=== PATIENT | male | born 1955 | race Caucasian/White ===

== ENCOUNTER 2018-11-15 14:34 | Inpatient (IN) | payer OTHER ==
[2018-11-15 15:37] LABS: Activated Partial Thrombo Time 29.4 seconds (26.0-38.0); INR 1.56 (0.82-1.09)
[2018-11-15 15:42] LABS: ALT 13 U/L (7-52); AST 18 U/L (13-39); Albumin 3.9 g/dL (3.2-5.2); Albumin/Globulin Ratio 1.6 (1-3); Alkaline Phosphatase 45 U/L (34-104); Anion Gap 12 mmol/L (2-11); BUN/Creatinine Ratio 21.8 (8-20); Blood Urea Nitrogen 22 mg/dL (6-24); CO2 Carbon Dioxide 19 mmol/L (22-32); Chloride 105 mmol/L (101-111); EGFR African American 90.3 (>60); EGFR Non-African American 74.6 (>60); Globulin 2.5 g/dL (2-4); Glucose 180 mg/dL (70-100); Potassium 4.2 mmol/L (3.5-5.0); Sodium 136 mmol/L (135-145); Total Protein 6.4 g/dL (6.4-8.9)
[2018-11-15 15:49] LABS: ABS Eosinophils 0.1 10^3/ul (0-0.6); ABS Lymphocytes 1.9 10^3/ul (1.0-4.8); ABS Monocytes 0.7 10^3/ul (0-0.8); ABS Neutrophils 6.1 10^3/ul (1.5-7.7); Eosinophil % 1.2 %; Hematocrit 17 % (42-52); Hemoglobin 5.6 g/dL (14.0-18.0); Lymphocyte % 21.5 %; Mean Corpuscular HGB Conc 34 g/dL (31-36); Mean Corpuscular Hemoglobin 29 pg (27-31); Mean Corpuscular Volume 85 fL (80-94); Mean Platelet Volume 8.3 fL (7.4-10.4); Nucleated Red Blood Cells % 0.3; Platelet Count 197 10^3/uL (150-450); Red Blood Count 1.93 10^6 /uL (4.18-5.48); Red Cell Distribution Width 16 % (10-15); White Blood Count 8.8 10^3/uL (3.5-10.8)
[2018-11-15 15:50] LABS: Polychromasia 3+
[2018-11-15 15:56] LABS: Troponin I 0.04 ng/mL (<0.04)
--- NOTE | 2018-11-15 15:59 | ED ---
Complex/Multi-Sys Presentation - HPI Summary HPI Summary: A 63 y/o M presents to ED c/o SOB onset for three days. Patient had open heart surgery 6 weeks ago at [facility] in [place], things were well. He was taking Warfarin for some mild a-fib. A week and a half ago, patient accidentally double dosed on his Coumadin for about three days ago. Pt went to the Coumadin clinic yesterday, and they had him stop his Coumadin. Associated sx: lightheadedness, dizziness, muscular chest "burning", constipation, tarry stools. Pt denies any fever, chills, erythema of eyes, sore throat, CP, cough, abdominal pain, N/V, dysuria, hematuria, myalgia, edema, and rash. Alleviating factors: sitting, rest. Patient denies prior blood transfusions. - History Of Current Complaint [facility] Time Seen by Provider: 11/15/18 15:42 Hx Obtained From: Patient, Family/Feed Weigher - girlfriend, Medical Records Onset/Duration: Gradual Onset, Lasting Days, Still Present Severity Currently: Mild Aggravating Factor(s): exertion Alleviating Factor(s): rest, sitting Associated Signs And Symptoms: Positive: Dizziness, SOB, Melena - tarry stools, Other - pos: lightheadedness, muscular chest "burning", constipation. neg: chills, erythema of eyes, sore throat, dysuria, hematuria, myalgia, edema, and rash.. Negative: Cough, Chest Pain, Edema, Nausea, Vomiting, Abdominal Pain, Fever - Allergies/Home Medications Allergies/Adverse Reactions: Allergies Allergy/AdvReac Type Severity Reaction Status Date / Time No Known Allergies Allergy Verified 11/15/18 14:37 Home Medications: Home Medications Aspirin 81 mg CHEW TAB* [Aspirin Low Dose TAB*] 81 mg PO DAILY 11/15/18 [ History Confirmed 11/15/18] FLUoxetine CAP* [PROzac CAP*] 20 mg PO DAILY 11/15/18 [History Confirmed ] Metoprolol Tartrate TAB* [Lopressor TAB*] 25 mg PO DAILY 11/15/18 [History Confirmed 11/15/18] Omeprazole CAP (NF) [Prilosec CAP* 20 MG] 20 mg PO DAILY 11/15/18 [History Confirmed 11/15/18] RX: Metformin ER (NF) 1,000 mg PO BID 11/15/18 [History Confirmed 11/15/18] Warfarin TAB(*) [Coumadin TAB(*)] 5 - 10 mg PO DAILY 11/15/18 [History Confirmed 11/15/18] PMH/Surg Hx/FS Hx/Imm Hx Previously Healthy: No - gout Endocrine/Hematology History: Reports: Hx Diabetes - pre-DM Cardiovascular History: Reports: Hx Atrial Fibrillation - mild, Hx Hypertension , Other Cardiovascular Problems/Disorders - valve replacement - Cancer History Cancer Type, Location and Year: colon CA Infectious Disease History: No Infectious Disease History: Denies: Traveled Outside the [place] in Last 30 Days - Family History Known Family History: Positive: Other - pos: asthma Negative: Diabetes - Social History Occupation: Unemployed Lives: Alone Alcohol Use: Occasionally Hx Substance Use: No Substance Use Type: Reports: None Hx Tobacco Use: Yes Smoking Status (MU): Former Smoker Review of Systems Negative: Fever, Chills Negative: Erythema Negative: Sore Throat Positive: Other - pos: muscular chest "burning". Negative: Chest Pain Positive: Shortness Of Breath. Negative: Cough Positive: Other - pos: tarry stools, constipation. Negative: Abdominal Pain, Vomiting, Nausea Negative: dysuria, hematuria Negative: Myalgia, Edema Negative: Rash Neurological: Other - pos: dizziness, lightheadedness All Other Systems Reviewed And Are Negative: Yes Physical Exam - Summary Physical Exam Summary: Constitutional: Well-developed, Well-nourished, Alert. (-) Distressed Skin: Warm, Dry, Pale HENT: Normocephalic; Atraumatic Eyes: Conjunctiva normal Neck: Musculoskeletal ROM normal neck. (-) JVD, (-) Stridor, (-) Tracheal deviation Cardio: Rhythm regular, rate normal, Heart sounds normal; Intact distal pulses; The pedal pulses are 2+ and symmetric. Radial pulses are 2+ and symmetric. (-) Murmur Pulmonary/Chest wall: Effort normal. (-) Respiratory distress, (-) Wheezes, (-) Rales Abd: Soft, (-) epigastric tenderness, (-) Distension, (-) Guarding, (-) Rebound Musculoskeletal: (-) Edema Lymph: (-) Cervical adenopathy Neuro: Alert, Oriented x3 Psych: Mood and affect Normal Rectal: melena Triage Information Reviewed: Yes Vital Signs On Initial Exam: Initial Vitals Temp Pulse Resp BP Pulse Ox 97.8 F 90 18 135/72 100 11/15/18 14:37 11/15/18 14:37 11/15/18 14:37 11/15/18 14:37 11/15/18 14:37 Vital Signs Reviewed: Yes Diagnostics - Vital Signs Vital Signs Temp Pulse Resp BP Pulse Ox 11/15/18 14:37 97.8 F 90 18 135/72 100 - Laboratory Lab Results: Lab Results 11/15/18 11/15/18 11/15/18 Range/Units 15:05 15:11 15:11 WBC 8.8 (3.5-10.8) 10^3/uL RBC 1.93 L (4.18-5.48) 10^6 /uL Hgb 5.6 L* (14.0-18.0) g/dL Hct 17 L (42-52) % MCV 85 (80-94) fL MCH 29 (27-31) pg MCHC 34 (31-36) g/dL RDW 16 H (10-15) % Plt Count 197 (150-450) 10^3/uL MPV 8.3 (7.4-10.4) fL Neut % (Auto) 69.1 % Lymph % (Auto) 21.5 % [place] % (Auto) 7.8 % Eos % (Auto) 1.2 % Baso % (Auto) 0.4 % Absolute Neuts (auto) 6.1 (1.5-7.7) 10^3/ul Absolute Lymphs (auto) 1.9 (1.0-4.8) 10^3/ul Absolute Monos (auto) 0.7 (0-0.8) 10^3/ul Absolute Eos (auto) 0.1 (0-0.6) 10^3/ul Absolute Basos (auto) 0.0 (0-0.2) 10^3/ul Absolute Nucleated RBC 0.0 10^3/ul Nucleated RBC % 0.3 Polychromasia 3+ Anisocytosis 1+ INR (Anticoag Therapy) (0.82-1.09) APTT (26.0-38.0) seconds Sodium 136 (135-145) mmol/L Potassium 4.2 (3.5-5.0) mmol/L Chloride 105 (101-111) mmol/L Carbon Dioxide 19 L (22-32) mmol/L Anion Gap 12 H (2-11) mmol/L BUN 22 (6-24) mg/dL Creatinine 1.01 (0.67-1.17) mg/dL Est GFR ( Amer) 90.3 (>60) Est GFR (Non-Af Amer) 74.6 (>60) BUN/Creatinine Ratio 21.8 H (8-20) Glucose 180 H (70-100) mg/dL Calcium 9.0 (8.6-10.3) mg/dL Total Bilirubin 0.50 (0.2-1.0) mg/dL AST 18 (13-39) U/L ALT 13 (7-52) U/L Alkaline Phosphatase 45 (34-104) U/L Troponin I 0.04 H* (<0.04) ng/mL B-Natriuretic Peptide (<=100) pg/mL Total Protein 6.4 (6.4-8.9) g/dL Albumin 3.9 (3.2-5.2) g/dL Globulin 2.5 (2-4) g/dL Albumin/Globulin Ratio 1.6 (1-3) Blood Type O Positive Antibody Screen Pending 11/15/18 11/15/18 Range/Units 15:11 15:11 WBC (3.5-10.8) 10^3/uL RBC (4.18-5.48) 10^6 /uL Hgb (14.0-18.0) g/dL Hct (42-52) % MCV (80-94) fL MCH (27-31) pg MCHC (31-36) g/dL RDW (10-15) % Plt Count (150-450) 10^3/uL MPV (7.4-10.4) fL Neut % (Auto) % Lymph % (Auto) % [place] % (Auto) % Eos % (Auto) % Baso % (Auto) % Absolute Neuts (auto) (1.5-7.7) 10^3/ul Absolute Lymphs (auto) (1.0-4.8) 10^3/ul Absolute Monos (auto) (0-0.8) 10^3/ul Absolute Eos (auto) (0-0.6) 10^3/ul Absolute Basos (auto) (0-0.2) 10^3/ul Absolute Nucleated RBC 10^3/ul Nucleated RBC % Polychromasia Anisocytosis INR (Anticoag Therapy) 1.56 H (0.82-1.09) APTT 29.4 (26.0-38.0) seconds Sodium (135-145) mmol/L Potassium (3.5-5.0) mmol/L Chloride (101-111) mmol/L Carbon Dioxide (22-32) mmol/L Anion Gap (2-11) mmol/L BUN (6-24) mg/dL Creatinine (0.67-1.17) mg/dL Est GFR ( Amer) (>60) Est GFR (Non-Af Amer) (>60) BUN/Creatinine Ratio (8-20) Glucose (70-100) mg/dL Calcium (8.6-10.3) mg/dL Total Bilirubin (0.2-1.0) mg/dL AST (13-39) U/L ALT (7-52) U/L Alkaline Phosphatase (34-104) U/L Troponin I (<0.04) ng/mL B-Natriuretic Peptide 218 H (<=100) pg/mL Total Protein (6.4-8.9) g/dL Albumin (3.2-5.2) g/dL Globulin (2-4) g/dL Albumin/Globulin Ratio (1-3) Blood Type Antibody Screen Result Diagrams: 11/15/18 15:11 11/15/18 15:11 Lab Statement: Any lab studies that have been ordered have been reviewed, and results considered in the medical decision making process. - Radiology CXR Radiology Interpretation Completed By: Radiologist Summary of Radiographic Findings: IMPRESSION: NO ACTIVE CARDIOPULMONARY DISEASE. ED provider has reviewed this report. - EKG 1453 Cardiac Rate: NL - 84 bpm EKG Rhythm: Sinus Rhythm Summary of EKG Findings: no STEMI. Complex Multi-Symp Course/Dx Course Of Treatment: Patient is a 63 y/o M who had open heart surgery 6-weeks ago at [facility] who presents after accidental overdose of Coumadin 1.5 weeks ago. Associated sx: SOB, lightheadedness, dizziness, muscular chest "burning", constipation, tarry stools. PE finds melena on rectal exam, and pallor. CXR is negative. EKG is NSR. Critical lab values: Hgb: 5.6, lactic acid: 3.3, troponin : 0.04. Consulted with Dr. Obrien, GI, who will scope patient. Consulted with Dr. Julien, hospitalist, who will admit patient. - Diagnoses Provider Diagnoses: Accidental medication overdose, Upper GI bleed, Symptomatic anemia - Physician Notifications Discussed Care Of Patient With: David Obrien - GI Time Discussed With Above Provider: 16:55 Instructed by Provider To: Other - Will scope patient. - Critical Care Time Critical Care Time: 30-74 min - 45 mins Discharge - Sign-Out/Discharge Documenting (check all that apply): Patient Departure - ADMIT Patient Received Moderate/Deep Sedation with Procedure: No - Discharge Plan Disposition: ADMITTED TO [facility] Referrals: Annmarie Ashby MD [Primary Care Provider] - - Attestation Statements Document Initiated by Scribe: Yes Documenting Scribe: Sofia Foy Provider For Whom Scribe is Documenting (Include Credential): Dr. Paulino Shah MD Scribe Attestation: Bethany, Sofia Foy, scribed for Dr. Paulino Shah MD on 11/15/18 at 1725. Status of Scribe Document: Ready Consult Consult: 1655: Consult with Dr. Julien, hospitalist Will admit patient.
[2018-11-15] MEDS ORDERED: Pantoprazole IV* 40 MG IV ONE (16:51)
[2018-11-15] MEDS ORDERED: Pantoprazole* 80 mg IN NS 80 MG/250 ML BAG IV ONE (16:51)
[2018-11-15] MEDS ORDERED: Dextrose 50% Syringe 50 ML* 25 GM/50 ML SYRINGE IV PUSH PRN (17:43)
[2018-11-15 18:09] LABS: Hematocrit 15 % (42-52); Hemoglobin 5.1 g/dL (14.0-18.0)
[2018-11-15] MEDS: NS 0.9% 1000 ML** 1,000 ML IV SCH (18:09)
--- NOTE | 2018-11-15 19:23 | HP ---
HISTORY AND PHYSICAL: DATE OF ADMISSION: 11/15/18 PROVIDER: Nancy Reina NP ATTENDING PHYSICIAN: Dr. Garduno * (report dictated by Nancy Reina NP). PRIMARY CARE PROVIDER: Dr. Annmarie Ashby. DIGESTER HAND: Dr. Santiago. CARDIOTHORACIC SURGEON: Dr. Navdeep Rivas. CHIEF COMPLAINT: Dizziness, shortness of breath, melena. HISTORY OF PRESENT ILLNESS: Mr. Mejia is a 63-year-old male with a past medical history of cardiovascular disease with recent open heart surgery 6 weeks ago at [facility] in [place] and which he reports he had a two vessel bypass with a aortic bovine valve replacement, also has a history of non-insulin- dependent type 2 diabetes, hypertension, and history of colon cancer status post resection 15 years ago. The patient reports that he was started on metformin for a new diagnosis of type 2 diabetes at his recent [facility] hospitalization. As well, there was a question if he had AFib and he was started on Coumadin. The patient reports a week and a half to two weeks ago took a double dose of Coumadin for 3-5 days, misunderstanding the directions as his partner was managing his medications and she went out of town. He reports he has been following with the [facility] and last week was found to have an INR of 8 and at that time the Coumadin Clinic just stopped his Coumadin and he was told to increase his leafy green intake and denies being given any vitamin K. He reports his INR drifted down and followed up with the clinic this week, where it was noted to be 1.7 and he was started on Coumadin 2.5 last evening. He reports over the course of the week and a half to two weeks, he had increased bleeding gums. Starting approximately 3 to 4 days ago, he started noting he had small black tarry stools that were sticky-like. He reports these were approximately once a day. His last black tarry stool was this morning and he reports it to be very small. He has had no abdominal pain, nausea, vomiting. He reports that today he became very short of breath with exertion with some dizziness, bringing himself to the ER and was found to have a hemoglobin of 5.6 and an INR of 1.56. In regards to his recent surgery, he reports he has been doing very well. His chest incision has been healing nicely. I do note there is a nursing note that says that the patient complained of some chest pain; however, the patient denies chest pain and states that he has left upper wall muscular chest pain and on assessment, this is tender to touch. Currently, the patient is doing well in the emergency department with stable vital signs. He has a troponin of 0.04 and a noted lactic acid of 3.3. The patient has no noted signs of sepsis or infection. He denies any recent illnesses, no fever/chills, cough, body aches. PAST MEDICAL HISTORY: 1. Syj-hxexosb-iszknerwc type 2 diabetes. 2. Coronary artery disease with history of recent bypass 6 weeks ago with bovine aortic valve repair 3. Possible atrial fibrillation, recently started on Coumadin 6 weeks ago 4. Depression. 5. GERD. 6. History of colon cancer, status post resection 15 years ago. HOME MEDICATIONS: 1. Coumadin 2.5 mg p.o. in the evening. 2. Aspirin 81 mg p.o. daily. 3. Prilosec 20 mg p.o. daily. 4. Prozac 20 mg p.o. daily. 5. Metformin ER 1000 mg p.o. b.i.d. 6. Metoprolol tartrate 25 mg p.o. daily. ALLERGIES: No known allergies. FAMILY HISTORY: His father of an MD at age 44. No family history of diabetes or cancer. SOCIAL HISTORY: Ten-year smoking history, smoking 1 pack a day, quit 35 years ago. Occasional alcohol. Denies drug use. 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 He is 7 years ago and currently lives with his partner, Faye, who he lists as a healthcare proxy. He has 1 son, Osiel Jones, who lives in [place] and he also lists as a healthcare proxy. REVIEW OF SYSTEMS: A 14-point review of systems was performed. All the positives and negatives are mentioned in the history of present illness. Otherwise are negative. PHYSICAL EXAMINATION GENERAL APPEARANCE: A 63-year-old male, alert and oriented x3, appears well, stable, in no acute distress. VITAL SIGNS: Temperature 97.8, heart rate 91, respirations 23, O2 sat 100% on room air, blood pressure 147/94. HEENT: Head is normocephalic, atraumatic. Pupils are equal and reactive to light. Oropharynx is clear. Moist mucous membranes. Good dentition. NECK: Supple. RESPIRATORY: Lungs are clear to auscultation bilaterally. Good aeration throughout. CARDIAC: S1, S2. Regular rate and rhythm. No murmurs, rubs, or gallops appreciated. No lower extremity edema noted. 2+ DP pulses bilaterally. ABDOMEN: Slightly obese, soft, nontender, nondistended. Normal bowel sounds throughout. MUSCULOSKELETAL: No clubbing or cyanosis. Full range of motion in all extremities. Strength is 5/5 throughout. NEURO: Alert and oriented x3. No focal deficits noted. Moves all extremities. Sensation to lower extremities is intact to light touch. PSYCH: Appropriate to situation. SKIN: No rashes, lesions, or open wounds noted. DIAGNOSTIC STUDIES/LAB DATA: Sodium 136, potassium 4.2, chloride 105, carbon dioxide 19, anion gap 12, BUN 12, creatinine 1.01, glucose 180, lactic acid 3.3 , calcium 9.0. AST 18, ALT 13, alkaline phosphatase 45. Troponin 0.04. BNP 218. Total protein 6.4, albumin 3.9. WBC is 8.8, RBC 1.93, HGB 5.6, HCT 17, platelet count 197. INR 1.56. Chest x-ray, impression: No active cardiopulmonary disease noted. EKG: Sinus rhythm with a rate of 84, possible ST depression in V3 through V6. ASSESSMENT AND PLAN: Mr. Mejia is a 63-year-old male with past medical history of lkq-lparjli-wvtwlmiyl type 2 diabetes; hypertension; history of colon cancer, status post resection; coronary artery disease, status post recent two vessel bypass with aortic valve replacement; possible atrial fibrillation, who accidentally took an increased dose of his Coumadin for possibly 3 to 5 days, who then developed black tarry stools, shortness of breath and dizziness, presented to the emergency department, found to have a hemoglobin of 5.6. The patient will be admitted to the hospitalist service for gastrointestinal bleed. 1. Gastrointestinal bleed. The patient will be admitted to telemetry. He is stable. Two IVs have been placed. He has been started on a Protonix drip. He is currently undergoing 2 units of packed red blood cells. He looks well. He is hemodynamically stable. Trend H and Hs q.6 hours. I spoke with GI, Dr. Obrien, who recommends the patient be n.p.o. after midnight with plan for colonoscopy with Dr. Hyde tomorrow. 2. Elevated troponin. The patient has no chest pain. He does have some slight depressions in V3 through V6. I have low suspicion for an acute coronary event. We will monitor on telemetry and trend troponins. I will try to obtain his records from [facility]. 3. Coronary artery disease. Continue metoprolol with hold parameters. Plan to hold Coumadin and aspirin. Again, we will try to obtain records and reach out to his residential child care counselor. 4. Atrial fibrillation. Currently in sinus rhythm. Continue metoprolol with hold parameters. Again, plan to hold aspirin and Coumadin. 5. Elevated lactic acid. We will repeat this. I have low suspicion for any infectious etiology. 6. Fro-suxdgks-qtudgalmk type 2 diabetes. Hold metformin. Fingerstick blood glucose a.c. and h.s. with lispro sliding scale. 7. Gastroesophageal reflux disease. Continue PPI. 8. Depression. Continue Prozac. 9. DVT prophylaxis: SCDs only. 10. Full code. 11. Inpatient. TIME SPENT: Approximately 60 minutes was spent on this admission. NANCY REINA, ALYSHA [id number]/CPS #: [id number] JUS
[2018-11-15] MEDS ORDERED: NS 0.9% 500 ML* 500 ML IV ONE (20:39)
[2018-11-15] MEDS ORDERED: diPHENhydraMINE IV* 50 MG/ML 1 ml VIAL (BENADRYL) IV ONE (20:39)
[2018-11-15] MEDS ORDERED: Acetaminophen TAB* 325 MG PO ONE (20:39)
[2018-11-15] MEDS: Insulin LISPRO* 1 UNITS UNIT SUBCUT SCH (20:54)
[2018-11-15 22:45] LABS: Troponin I 0.04 ng/mL (<0.04)
[2018-11-16 00:36] LABS: Troponin I 0.04 ng/mL (<0.04)
[2018-11-16] MEDS ORDERED: Acetaminophen TAB* 325 MG PO ONE (01:00)
[2018-11-16] MEDS ORDERED: diPHENhydraMINE PO* 25 MG PO ONE (01:00)
--- NOTE | 2018-11-16 04:01 | PN ---
Hospitalist Progress Note Date of Service: 11/15/18 Nursing called to report possible transfusion reaction after first unit had finished infusing. VS stable. Patient developing rigors. On exam he is noted to be shaking uncontrollably. Denies SOB, CP, back pain. HRR. LS clear on RA. Ordered Tylenol and Bendryl x1 now. Lab later called to report no transfusion reaction on their end. Recommends pre- medicating with Tylenol and Benadryl prior to next unit. This was ordered and conveyed to nurse.
[2018-11-16 04:29] LABS: Hematocrit 17 % (42-52); Hemoglobin 5.8 g/dL (14.0-18.0); Mean Corpuscular HGB Conc 34 g/dL (31-36); Mean Corpuscular Hemoglobin 29 pg (27-31); Mean Corpuscular Volume 86 fL (80-94); Mean Platelet Volume 8.1 fL (7.4-10.4); Platelet Count 117 10^3/uL (150-450); Red Blood Count 1.99 10^6 /uL (4.18-5.48); Red Cell Distribution Width 15 % (10-15); White Blood Count 5.3 10^3/uL (3.5-10.8)
[2018-11-16 04:33] LABS: BUN/Creatinine Ratio 16.3 (8-20); Calcium 8.1 mg/dL (8.6-10.3); EGFR African American 87.3 (>60); EGFR Non-African American 72.1 (>60); Potassium 3.8 mmol/L (3.5-5.0)
[2018-11-16 04:53] LABS: ABS Eosinophils 0.1 10^3/ul (0-0.6); ABS Lymphocytes 1.3 10^3/ul (1.0-4.8); ABS Monocytes 0.4 10^3/ul (0-0.8); ABS Neutrophils 3.5 10^3/ul (1.5-7.7); Eosinophil % 1.1 %; Lymphocyte % 24.5 %; Nucleated Red Blood Cells % 0.3
[2018-11-16] MEDS: NS 0.9% 1000 ML** 1,000 ML IV SCH (07:26)
[2018-11-16] MEDS: Metoprolol Tartrate TAB* 25 MG PO SCH (07:46)
[2018-11-16] MEDS: Insulin LISPRO* 1 UNITS UNIT SUBCUT SCH ×4 (07:46→22:07)
[2018-11-16] MEDS: Pantoprazole* 80 mg IN NS 80 MG/250 ML BAG IV SCH ×2 (07:59→18:54)
--- NOTE | 2018-11-16 08:13 | PN ---
Subjective Date of Service: 11/16/18 Interval History: . patient reports "I feel fine" - he denies dizziness. No SOB, wheezing. Denies CP. Denies abdominal pain. Reports last night he had a moderate black tarry moderate stool. Objective Active Medications: Dextrose (D50w Syringe 50 Ml*) 12.5 gm IV PUSH .FOR FS < 60 - SS PRN PRN Reason: FS < 60 Sodium Chloride (Ns 0.9% 1000 Ml) 1,000 mls @ 75 mls/hr IV PER RATE [facility] Last Admin: 11/16/18 07:26 Dose: 75 mls/hr Pantoprazole Sodium (Protonix Iv Bag*) 80 mg in 250 mls @ 25 mls/hr IV Q10H [facility] Last Admin: 11/16/18 07:59 Dose: 25 mls/hr Insulin Human Lispro (Humalog*) 0 units SUBCUT ACHS [facility]; Protocol Last Admin: 11/16/18 07:46 Dose: 1 units Metoprolol Tartrate (Lopressor Tab*) 25 mg PO DAILY [facility] Last Admin: 11/16/18 07:46 Dose: 25 mg Vital Signs - 8 hr 11/16/18 11/16/18 11/16/18 00:23 03:07 03:18 Temperature 97.9 F 98.8 F Pulse Rate 98 89 Respiratory 18 18 18 Rate Blood Pressure 115/55 117/51 (mmHg) O2 Sat by Pulse 98 100 Oximetry 11/16/18 11/16/18 11/16/18 05:20 06:13 07:23 Temperature 99.0 F 99 F Pulse Rate 85 83 Respiratory 18 18 18 Rate Blood Pressure 109/55 109/58 (mmHg) O2 Sat by Pulse 100 98 Oximetry Oxygen Devices in Use Now: None Appearance: 63 yo male A+O x3 in NAD - appears well Eyes: No Scleral Icterus, PERRLA Ears/Nose/Mouth/Throat: NL Teeth, Lips, Gums, Mucous Membranes Moist Neck: NL Appearance and Movements; NL JVP Respiratory: Symmetrical Chest Expansion and Respiratory Effort, Clear to Auscultation Cardiovascular: NL Sounds; No Murmurs; No JVD, RRR, No Edema Abdominal: NL Sounds; No Tenderness; No Distention, - Extremities: No Edema, No Clubbing, Cyanosis Skin: No Rash or Ulcers, No Nodules or Sclerosis, - - mid sternal incision wound - healing well w/o signs of erythema Neurological: Alert and Oriented x 3, NL Sensation, NL Gait, NL Muscle Strength and Tone Lines/Tubes/Other Access: Clean, Dry and Intact Peripheral IV Nutrition: Taking PO's Result Diagrams: 11/16/18 10:04 11/16/18 04:06 Additional Lab and Data: Lab Results 11/15/18 11/15/18 11/15/18 Range/Units 15:05 15:11 15:11 WBC 8.8 (3.5-10.8) 10^3/uL RBC 1.93 L (4.18-5.48) 10^6 /uL Hgb 5.6 L* (14.0-18.0) g/dL Hct 17 L (42-52) % MCV 85 (80-94) fL MCH 29 (27-31) pg MCHC 34 (31-36) g/dL RDW 16 H (10-15) % Plt Count 197 (150-450) 10^3/uL MPV 8.3 (7.4-10.4) fL Neut % (Auto) 69.1 % Lymph % (Auto) 21.5 % Leslie % (Auto) 7.8 % Eos % (Auto) 1.2 % Baso % (Auto) 0.4 % Absolute Neuts (auto) 6.1 (1.5-7.7) 10^3/ul Absolute Lymphs (auto) 1.9 (1.0-4.8) 10^3/ul Absolute Monos (auto) 0.7 (0-0.8) 10^3/ul Absolute Eos (auto) 0.1 (0-0.6) 10^3/ul Absolute Basos (auto) 0.0 (0-0.2) 10^3/ul Absolute Nucleated RBC 0.0 10^3/ul Nucleated RBC % 0.3 Polychromasia 3+ Anisocytosis 1+ INR (Anticoag Therapy) (0.82-1.09) APTT (26.0-38.0) seconds Sodium 136 (135-145) mmol/L Potassium 4.2 (3.5-5.0) mmol/L Chloride 105 (101-111) mmol/L Carbon Dioxide 19 L (22-32) mmol/L Anion Gap 12 H (2-11) mmol/L BUN 22 (6-24) mg/dL Creatinine 1.01 (0.67-1.17) mg/dL Est GFR ( Amer) 90.3 (>60) Est GFR (Non-Af Amer) 74.6 (>60) BUN/Creatinine Ratio 21.8 H (8-20) Glucose 180 H (70-100) mg/dL Calcium 9.0 (8.6-10.3) mg/dL Total Bilirubin 0.50 (0.2-1.0) mg/dL AST 18 (13-39) U/L ALT 13 (7-52) U/L Alkaline Phosphatase 45 (34-104) U/L Troponin I 0.04 H* (<0.04) ng/mL B-Natriuretic Peptide (<=100) pg/mL Total Protein 6.4 (6.4-8.9) g/dL Albumin 3.9 (3.2-5.2) g/dL Globulin 2.5 (2-4) g/dL Albumin/Globulin Ratio 1.6 (1-3) Blood Type O Positive Antibody Screen Pending 11/15/18 11/15/18 Range/Units 15:11 15:11 WBC (3.5-10.8) 10^3/uL RBC (4.18-5.48) 10^6 /uL Hgb (14.0-18.0) g/dL Hct (42-52) % MCV (80-94) fL MCH (27-31) pg MCHC (31-36) g/dL RDW (10-15) % Plt Count (150-450) 10^3/uL MPV (7.4-10.4) fL Neut % (Auto) % Lymph % (Auto) % Leslie % (Auto) % Eos % (Auto) % Baso % (Auto) % Absolute Neuts (auto) (1.5-7.7) 10^3/ul Absolute Lymphs (auto) (1.0-4.8) 10^3/ul Absolute Monos (auto) (0-0.8) 10^3/ul Absolute Eos (auto) (0-0.6) 10^3/ul Absolute Basos (auto) (0-0.2) 10^3/ul Absolute Nucleated RBC 10^3/ul Nucleated RBC % Polychromasia Anisocytosis INR (Anticoag Therapy) 1.56 H (0.82-1.09) APTT 29.4 (26.0-38.0) seconds Sodium (135-145) mmol/L Potassium (3.5-5.0) mmol/L Chloride (101-111) mmol/L Carbon Dioxide (22-32) mmol/L Anion Gap (2-11) mmol/L BUN (6-24) mg/dL Creatinine (0.67-1.17) mg/dL Est GFR ( Amer) (>60) Est GFR (Non-Af Amer) (>60) BUN/Creatinine Ratio (8-20) Glucose (70-100) mg/dL Calcium (8.6-10.3) mg/dL Total Bilirubin (0.2-1.0) mg/dL AST (13-39) U/L ALT (7-52) U/L Alkaline Phosphatase (34-104) U/L Troponin I (<0.04) ng/mL B-Natriuretic Peptide 218 H (<=100) pg/mL Total Protein (6.4-8.9) g/dL Albumin (3.2-5.2) g/dL Globulin (2-4) g/dL Albumin/Globulin Ratio (1-3) Blood Type Antibody Screen Microbiology and Other Data: Microbiology 11/16/18 02:15 Stool Gross Appearance - Final Stool 11/15/18 20:28 Transfusion Reaction Gram Stain - Preliminary Blood Bag 11/15/18 17:45 Stool Occult Blood (MELISSA) - Final Stool Assess/Plan/Problems-Billing Assessment: Mr. Mejia is a 63-year-old male with past medical history of non- insulin-dependent type 2 diabetes; hypertension; history of colon cancer, status post resection; coronary artery disease, status post recent bypass with bovine valve replacement and stent placement; possible atrial fibrillation, who accidentally took an increased dose of his Coumadin for possibly 3 to 5 days, who then developed black tarry stools, shortness of breath and dizziness, presented to the emergency department, found to have a hemoglobin of 5.6 and INR 1.5 - Patient Problems (1) GI bleed Comment: - Stable. reports melena stool last night - moderate in size. - Hx of colon ca 15 years ago s/p resection - last colonoscopy was 5 years ago - reports he is due - secondary to supratherapeutic INR (was 8 about 10-14 days ago)- accidently doubled his dose of coumadin - INR 1.5 on admission. was restarted on coumadin 11/14 by [facility] (only took one dose). repeat INR this am. - Hgb 5.6 on admission - transfusion reaction overnight found to not be a true reaction; premedicate with benedryl and apap; has currently recieved 3 units; repeat HH is 7.08/23 - plan to give a 4th unit PRBC - does not appear to be fluid overloaded. - GI - discussed with Dr. Obrien last night; awaiting consult - PPI - was loaded in ER but protonix drip never started - start now. - NPO (2) CAD (coronary artery disease) Comment: - asymptomatic - recent open heart surgery - 6 weeks s/p CABG with 2 stents placed and valve repair (pt is not sure which valve) - awaiting records from [facility] and call back from Dr. Houstonitic cashiers supervisor. - troponins 0.04, 0.04, 0.04 - Continue Metoprolol 25 mg daily with hold parameters (3) Diabetes Comment: - non-insulin dependent type-2 - Hold home metformin, continue lispro SS with FSBG ACHS (4) GERD (gastroesophageal reflux disease) Comment: - continue PPI (5) Full code status (6) DVT prophylaxis Comment: SCDs only Status and Disposition: Inpatient with GI bleed. Home when medically stable 1-3 days
[2018-11-16] MEDS ORDERED: Metoprolol Tartrate TAB* 25 MG PO SCH (09:00)
[2018-11-16 10:27] LABS: ABS Eosinophils 0.1 10^3/ul (0-0.6); ABS Lymphocytes 1.4 10^3/ul (1.0-4.8); ABS Monocytes 0.4 10^3/ul (0-0.8); Eosinophil % 1.6 %; Hematocrit 21 % (42-52); Hemoglobin 7.3 g/dL (14.0-18.0); Lymphocyte % 28.6 %; Mean Corpuscular HGB Conc 34 g/dL (31-36); Mean Corpuscular Hemoglobin 29 pg (27-31); Mean Corpuscular Volume 85 fL (80-94); Mean Platelet Volume 8.5 fL (7.4-10.4); Nucleated Red Blood Cells % 0.4; Platelet Count 127 10^3/uL (150-450); Red Blood Count 2.52 10^6 /uL (4.18-5.48); Red Cell Distribution Width 15 % (10-15); White Blood Count 4.9 10^3/uL (3.5-10.8)
[2018-11-16 10:50] LABS: INR 1.45 (0.82-1.09)
[2018-11-16] MEDS ORDERED: diPHENhydraMINE IV* 50 MG/ML 1 ml VIAL (BENADRYL) IV ONE (12:00)
[2018-11-16] MEDS ORDERED: Midazolam* 1 MG/ML 10 ML VIAL (10 MG) ONE (15:48)
[2018-11-16] MEDS ORDERED: fentaNYL* 50 MCG/ML 2 ML VIAL (100 MCG VIAL) ONE (15:48)
--- NOTE | 2018-11-16 17:15 | CONS ---
GASTROENTEROLOGY CONSULT: DATE: 11/16/18 REFERRING PRACTITIONERS: Nancy Gold NP; Annmarie Ashby REASON FOR CONSULT: Black stool in a man who had coronary bypass and bioprosthetic aortic valve replacement (presumed) at [facility] about 6 weeks ago and has been on warfarin. HISTORY: He did well intraoperatively and for a few days postop. He went home. There was a suspicion he had some AFib and therefore, was on warfarin. Difficulty in adjusting his warfarin doses as outlined in the admitting H and P - he was left unsupervised. He began to see some dark stool, though only once or twice a day. There was not any syncope. He became short of breath and reported to the emergency room, where he was found to have a hemoglobin of 5.6 and an INR of 1.56. He did not appear to be having any coronary ischemia. He was admitted to telemetry and transfused a total of 3 units with postinfusion hemoglobin 7.3 at 10 a.m. and therefore, he was given a fourth unit. Today, he has not had any bowel movements. There has not been any emesis at any point. He is generally on an unrestricted diet. He recalls taking iron back 15 or 20 years ago around the time of colon cancer surgery. That was done at [facility]. He also recalls having a bleeding ulcer in the past, ultimately taking antibiotics. PAST MEDICAL HISTORY: 1. Type 2 diabetes - followed for at least 5 or 6 years and when treatment was imposed this spring, he went gone on a diet. 2. Coronary artery disease - status post bypass 6 weeks ago. 3. Transient arrhythmias - warfarin started postop - documentation unknown 4. Depression. 5. GERD - on Prilosec chronically. 6. Peptic ulcer disease - he states that around 1979, he had a bleeding ulcer. Dr Lazar did upper endoscopy. At some point, he was given antibiotics. He does not recall any other details other than that no surgery was required. 7. History of colon cancer - resection at [facility] over 15 years ago. 8. Colon polyps - he has had colonoscopies by Dr bOrien with tubular adenomas removed, most recently in 2012 with his followup delayed by his cardiac issues. HOME MEDICATIONS Aspirin 81, Warfarin dose varies, Prilosec 20 mg, Metformin 1000 b.i.d Metoprolol 25 b.i.d Prozac 20. ALLERGIES: None known to drugs. FAMILY HISTORY: Father of an AL at 44. There is no family history of colon cancer. Denies family history of diabetes or cerebrovascular disease. SOCIAL HISTORY: He quit smoking 35 years ago. 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 He has a son, Osiel Mejia. REVIEW OF SYSTEMS: There is no history of blood clots, DVT, or any other kind of acute vascular event. There is no history of seizures, hepatitis, hemoptysis , TB, liver disease, gross hematuria, or chronic diarrhea. He denies current acid peptic complaints. PHYSICAL EXAM: He is a moderately overweight man, slightly pale, in no overt distress. Blood pressure 116/67, pulse 75 and sinus, regular. HEENT exam is unremarkable. He has no adenopathy. His lungs are clear and symmetric. He has got a healing sternotomy scar. The abdomen is symmetric with a well-healed infraumbilical midline scar. There is no organomegaly or tenderness. Rectal: Deferred. Extremities show no edema and pulses are intact in the legs. Neurologic is nonfocal. IMPRESSION: This 63-year-old man had recent cardiac surgery and use of warfarin and aspirin. He has a history of gastroesophageal reflux disease and remote history of peptic ulcer disease, which he believes was treated with antibiotics. His warfarin was out of control at one point with an INR of 8. At this time the INR is acceptable at 1.5 and there is no sign of active or hemodynamically current bleeding though he has quite a deficit. A peptic condition is most likely if a defined source is present and an upper endoscopy is needed once another unit is tranfused. He seems medically rather unsophisticated and verifying with family that no NSAIDs are involved is needed. If arrhythmias were transient then maybe he could be managed without warfarin. Omeprazole already on his chronic list should protect him if ASA 81 mg is the shelter plan. Addendum: CLotest negative [id number]/[facility] #: [id number] [facility]
[2018-11-16 19:43] LABS: Hematocrit 23 % (42-52); Hemoglobin 7.7 g/dL (14.0-18.0)
--- NOTE | 2018-11-16 21:32 | PRO ---
DATE: 11/16/18 - ROOM #433 REFERRING PHYSICIAN: Annmarie Ashby MD * PROCEDURE: Upper gastrointestinal endoscopy and gastric greater curvature biopsy for CLOtest and routine histology. INDICATION: This 63-year-old man has had some melena over the last week. His INR has been as high as 8, though was 1.56 on admission. His hemoglobin was 5.6. He has received 4 units transfusion. He has had no signs of hemodynamic instability since admission. He has been on a PPI chronically as an outpt. ENDOSCOPIST: Dr. Hanley MEDICATIONS: Midazolam 11, fentanyl 75. FINDINGS: He is a moderately overweight older man, in no distress. He appears very calm and asks very few questions. He was positioned left side down and moderate sedation induced. EGD: Larynx - not seen. Esophagus - easily entered and the mucosa was normal in the upper, mid, and lower esophagus with a small hiatal hernia from about 40 to 42 and the hiatus at 42 to 43. There were no erosions and no signs of blood loss from the distal esophagus. Stomach - generally normal mucosa in the cardia, fundus, and body. The antrum has a little bit of pebbly regularity to contour with some minimal erythema, but no actual erosions or ulcer. There was no blood seen. The antrum was not appeared to be a potential source of blood loss, although with an INR of 8 that is difficult to be sure of. Pylorus appeared normal. Duodenum - the apex of the bulb was somewhat deformed and narrow. In the duodenal bulb, there were several pieces of celery. They were grasped with biopsy forceps atraumatically and dragged back into the stomach to facilitate full views of the duodenal bulb. No bleeding source was seen. There was no erosion, ulcer, or AVM. Carefully going through the somewhat stricture deformed apex of the bulb, no mucosal defect was seen and no blood. The third and fourth portions of the duodenum were normal. IMPRESSION: 1. Small hiatal hernia. 2. Minimal antral gastritis. 3. Duodenal deformity. 4. Gastrointestinal bleeding - certainly an upper GI bleeding pattern with black stool. His BUN was normal on admission. It would be appropriate to watch at this time and in a week depending upon the cardiac rhythm status through that time. Consider restarting warfarin with strict margins between 1.7 and 2.3. [id number]/[facility] #: [id number] [facility]
[2018-11-17] MEDS: Pantoprazole* 80 mg IN NS 80 MG/250 ML BAG IV SCH (04:59)
[2018-11-17 06:10] LABS: ABS Eosinophils 0.1 10^3/ul (0-0.6); ABS Lymphocytes 1.3 10^3/ul (1.0-4.8); ABS Monocytes 0.3 10^3/ul (0-0.8); ABS Neutrophils 1.9 10^3/ul (1.5-7.7); Eosinophil % 1.8 %; Hematocrit 23 % (42-52); Hemoglobin 7.7 g/dL (14.0-18.0); Lymphocyte % 36.1 %; Mean Corpuscular HGB Conc 34 g/dL (31-36); Mean Corpuscular Hemoglobin 29 pg (27-31); Mean Corpuscular Volume 86 fL (80-94); Mean Platelet Volume 8.8 fL (7.4-10.4); Nucleated Red Blood Cells % 0.1; Platelet Count 103 10^3/uL (150-450); Red Blood Count 2.64 10^6 /uL (4.18-5.48); Red Cell Distribution Width 15 % (10-15); White Blood Count 3.6 10^3/uL (3.5-10.8)
[2018-11-17 06:23] LABS: BUN/Creatinine Ratio 11.1 (8-20); EGFR African American 103.1 (>60); EGFR Non-African American 85.2 (>60); Potassium 3.6 mmol/L (3.5-5.0)
[2018-11-17] MEDS: Insulin LISPRO* 1 UNITS UNIT SUBCUT SCH ×2 (07:37→13:26)
[2018-11-17] MEDS: Metoprolol Tartrate TAB* 25 MG PO SCH (07:37)
[2018-11-17] MEDS ORDERED: diPHENhydraMINE PO* 25 MG PO ONE (09:52)
[2018-11-17] MEDS ORDERED: Acetaminophen TAB* 325 MG PO ONE (10:00)
--- NOTE | 2018-11-17 12:14 | PN ---
Subjective Date of Service: 11/17/18 Interval History: patient reports he feels much better compared to admission. he denies any dizziness, sob. reports he feels a little fatigue but didnt sleep well. Reports last melana stool was yesterday afternoon. No CP/SOB. Objective Active Medications: Dextrose (D50w Syringe 50 Ml*) 12.5 gm IV PUSH .FOR FS < 60 - SS PRN PRN Reason: FS < 60 Pantoprazole Sodium (Protonix Iv Bag*) 80 mg in 250 mls @ 25 mls/hr IV Q10H [facility] Last Admin: 11/17/18 04:59 Dose: 25 mls/hr Insulin Human Lispro (Humalog*) 0 units SUBCUT ACHS [facility]; Protocol Last Admin: 11/17/18 07:37 Dose: Not Given Metoprolol Tartrate (Lopressor Tab*) 25 mg PO DAILY [facility] Last Admin: 11/17/18 07:37 Dose: 25 mg Vital Signs - 8 hr 11/17/18 11/17/18 11/17/18 07:38 07:43 11:03 Temperature 97.9 F Pulse Rate 81 Respiratory 16 18 18 Rate Blood Pressure 122/63 (mmHg) O2 Sat by Pulse 97 Oximetry 11/17/18 11:12 Temperature 97.3 F Pulse Rate 61 Respiratory 20 Rate Blood Pressure 114/67 (mmHg) O2 Sat by Pulse 100 Oximetry Oxygen Devices in Use Now: None Appearance: A+Ox3 in NAD; appears well Eyes: PERRLA Ears/Nose/Mouth/Throat: Mucous Membranes Moist Respiratory: Symmetrical Chest Expansion and Respiratory Effort, Clear to Auscultation Cardiovascular: NL Sounds; No Murmurs; No JVD, RRR, No Edema Abdominal: NL Sounds; No Tenderness; No Distention Extremities: No Edema, No Clubbing, Cyanosis Skin: No Rash or Ulcers, No Nodules or Sclerosis Neurological: Alert and Oriented x 3, NL Sensation, NL Gait, NL Muscle Strength and Tone Lines/Tubes/Other Access: Clean, Dry and Intact Peripheral IV Nutrition: Taking PO's Result Diagrams: 11/17/18 05:50 11/17/18 05:50 Additional Lab and Data: Lab Results 11/15/18 11/15/18 11/15/18 Range/Units 15:05 15:11 15:11 WBC 8.8 (3.5-10.8) 10^3/uL RBC 1.93 L (4.18-5.48) 10^6 /uL Hgb 5.6 L* (14.0-18.0) g/dL Hct 17 L (42-52) % MCV 85 (80-94) fL MCH 29 (27-31) pg MCHC 34 (31-36) g/dL RDW 16 H (10-15) % Plt Count 197 (150-450) 10^3/uL MPV 8.3 (7.4-10.4) fL Neut % (Auto) 69.1 % Lymph % (Auto) 21.5 % Roosevelt % (Auto) 7.8 % Eos % (Auto) 1.2 % Baso % (Auto) 0.4 % Absolute Neuts (auto) 6.1 (1.5-7.7) 10^3/ul Absolute Lymphs (auto) 1.9 (1.0-4.8) 10^3/ul Absolute Monos (auto) 0.7 (0-0.8) 10^3/ul Absolute Eos (auto) 0.1 (0-0.6) 10^3/ul Absolute Basos (auto) 0.0 (0-0.2) 10^3/ul Absolute Nucleated RBC 0.0 10^3/ul Nucleated RBC % 0.3 Polychromasia 3+ Anisocytosis 1+ INR (Anticoag Therapy) (0.82-1.09) APTT (26.0-38.0) seconds Sodium 136 (135-145) mmol/L Potassium 4.2 (3.5-5.0) mmol/L Chloride 105 (101-111) mmol/L Carbon Dioxide 19 L (22-32) mmol/L Anion Gap 12 H (2-11) mmol/L BUN 22 (6-24) mg/dL Creatinine 1.01 (0.67-1.17) mg/dL Est GFR ( Amer) 90.3 (>60) Est GFR (Non-Af Amer) 74.6 (>60) BUN/Creatinine Ratio 21.8 H (8-20) Glucose 180 H (70-100) mg/dL Calcium 9.0 (8.6-10.3) mg/dL Total Bilirubin 0.50 (0.2-1.0) mg/dL AST 18 (13-39) U/L ALT 13 (7-52) U/L Alkaline Phosphatase 45 (34-104) U/L Troponin I 0.04 H* (<0.04) ng/mL B-Natriuretic Peptide (<=100) pg/mL Total Protein 6.4 (6.4-8.9) g/dL Albumin 3.9 (3.2-5.2) g/dL Globulin 2.5 (2-4) g/dL Albumin/Globulin Ratio 1.6 (1-3) Blood Type O Positive Antibody Screen Pending 11/15/18 11/15/18 Range/Units 15:11 15:11 WBC (3.5-10.8) 10^3/uL RBC (4.18-5.48) 10^6 /uL Hgb (14.0-18.0) g/dL Hct (42-52) % MCV (80-94) fL MCH (27-31) pg MCHC (31-36) g/dL RDW (10-15) % Plt Count (150-450) 10^3/uL MPV (7.4-10.4) fL Neut % (Auto) % Lymph % (Auto) % Roosevelt % (Auto) % Eos % (Auto) % Baso % (Auto) % Absolute Neuts (auto) (1.5-7.7) 10^3/ul Absolute Lymphs (auto) (1.0-4.8) 10^3/ul Absolute Monos (auto) (0-0.8) 10^3/ul Absolute Eos (auto) (0-0.6) 10^3/ul Absolute Basos (auto) (0-0.2) 10^3/ul Absolute Nucleated RBC 10^3/ul Nucleated RBC % Polychromasia Anisocytosis INR (Anticoag Therapy) 1.56 H (0.82-1.09) APTT 29.4 (26.0-38.0) seconds Sodium (135-145) mmol/L Potassium (3.5-5.0) mmol/L Chloride (101-111) mmol/L Carbon Dioxide (22-32) mmol/L Anion Gap (2-11) mmol/L BUN (6-24) mg/dL Creatinine (0.67-1.17) mg/dL Est GFR ( Amer) (>60) Est GFR (Non-Af Amer) (>60) BUN/Creatinine Ratio (8-20) Glucose (70-100) mg/dL Calcium (8.6-10.3) mg/dL Total Bilirubin (0.2-1.0) mg/dL AST (13-39) U/L ALT (7-52) U/L Alkaline Phosphatase (34-104) U/L Troponin I (<0.04) ng/mL B-Natriuretic Peptide 218 H (<=100) pg/mL Total Protein (6.4-8.9) g/dL Albumin (3.2-5.2) g/dL Globulin (2-4) g/dL Albumin/Globulin Ratio (1-3) Blood Type Antibody Screen Microbiology and Other Data: Microbiology 11/16/18 02:15 Stool Gross Appearance - Final Stool 11/15/18 20:28 Transfusion Reaction Gram Stain - Preliminary Blood Bag 11/15/18 17:45 Stool Occult Blood (MELISSA) - Final Stool Assess/Plan/Problems-Billing Assessment: Mr. Mejia is a 63-year-old male with past medical history of non- insulin-dependent type 2 diabetes; hypertension; history of colon cancer, status post resection; coronary artery disease, status post recent bypass with bovine valve replacement and stent placement; possible atrial fibrillation, who accidentally took an increased dose of his Coumadin for possibly 3 to 5 days, who then developed black tarry stools, shortness of breath and dizziness, presented to the emergency department, found to have a hemoglobin of 5.6 and INR 1.5 - Patient Problems (1) GI bleed Comment: - Stable. reports melena stool yesterday afternoon none since - Hx of colon ca 15 years ago s/p resection - last colonoscopy was 5 years ago - reports he is due - secondary to supratherapeutic INR (was 8 about 10-14 days ago)- accidently doubled his dose of coumadin - INR 1.5 on admission. was restarted on coumadin 11/14 by [facility] (only took one dose). - Hgb 5.6 on admission currently recieved 4 units; repeat HH is 7.7/23 (same as yesterday at 7pm) - plan to give a 5th unit PRBC d/t recommendations to maintain Hgb > 8 with patients with CAD. does not appear to be fluid overloaded. - GI - Dr. Mathis performed an upper endoscopy ysterday - showing no acute pathology - Impression: small hiatal hernia, minimal antral gastritis, duodenal deformity. recommends holding anticouagulation for a week and restarting with strict marins INR between 1.7-2.3 - PPI - advance diet to soft (2) CAD (coronary artery disease) Comment: - asymptomatic - recent open heart surgery - 6 weeks s/p 2-vessel CABG with aortic valve repair - Dr. Houstonitic range rider aware that patient is hospitalized - troponins 0.04, 0.04, 0.04 - Continue Metoprolol 25 mg daily with hold parameters (3) Diabetes Comment: - non-insulin dependent type-2 - Hold home metformin, continue lispro SS with FSBG ACHS (4) GERD (gastroesophageal reflux disease) Comment: - continue PPI (5) Full code status (6) DVT prophylaxis Comment: SCDs only Status and Disposition: Inpatient with GI bleed. Most likely plan for DC to home this afternoon
[2018-11-17 15:29] VITALS: BP 109/58
[2018-11-17 16:03] LABS: Hematocrit 28 % (42-52); Hemoglobin 9.2 g/dL (14.0-18.0)
[2018-11-17 16:11] LABS: INR 1.2 (0.82-1.09)
--- NOTE | 2018-11-17 20:48 | DS ---
ADDENDUM NOW INCLUDED ON THIS REPORT DISCHARGE SUMMARY: DATE OF ADMISSION: 11/15/18 DATE OF DISCHARGE: 11/17/18 PROVIDER: Robert Reina NP ATTENDING PHYSICIAN: Dr. Donovan * (report dictated by Robert Reina NP). PRIMARY CARE PROVIDER: Dr. Annmarie Ashby. WAREHOUSE DELIVERY MANAGER: Dr. Santiago. CARDIOTHORACIC SURGEON: Dr. Rivas at [facility] in [place], [place]. DISCHARGE DIAGNOSES: 1. Upper gastrointestinal bleed. 2. Acute blood loss anemia. SECONDARY DIAGNOSES: 1. Cry-ivlujfw-xkxnjoblt type 2 diabetes. 2. Coronary artery disease with recent 2-vessel bypass with aortic valve repair 6 weeks ago. 3. Possible atrial fibrillation, recently started on Coumadin 6 weeks ago at the same time he underwent cardiothoracic surgery. 4. Depression. 5. Gastroesophageal reflux disease. 6. Distant history of colon cancer, status post resection 15 years ago. DISCHARGE MEDICATIONS: 1. Metoprolol tartrate 25 mg p.o. daily. 2. Metformin ER 1000 mg p.o. b.i.d. 3. Prozac 20 mg p.o. daily. 4. Pantoprazole 40 mg p.o. daily. Medications on hold: 1. Coumadin. 2. Aspirin 81 mg p.o. daily. (The patient was instructed to hold these 2 medications due to GI bleed per Dr. Hanley, GI, for approximately 1 week. If the patient does not have any symptoms, he can restart these and recommends a strict margin of INR between 1.7 and 2.3). HISTORY OF PRESENT ILLNESS AND HOSPITAL COURSE: Please see history and physical by Robert Reina NP, this author, for full admission details, but in summary, this is a 63-year-old male who approximately 6 weeks ago underwent 2 -vessel bypass with aortic valve repair and during that hospitalization was found to have possible atrial fibrillation per the patient and was started on Coumadin at that time. The patient is also taking an aspirin 81 mg p.o. daily. He reports that approximately 3 to 5 days prior to coming to the emergency department on 11/15/18, he developed small intermittent melena stools on the day of admission. He presented to the emergency department after experiencing dizziness, feeling like he may pass out, shortness of breath along with continued dark tarry sticky stools. He reports approximately 2 weeks prior to admission he took the wrong Coumadin dose for approximately 3 to 5 days misunderstanding the directions as his partner manages his medications and she went out of town. [facility] and he was found to have an INR of 8 a week to a week and half ago and he was allowed to drift down. He reports that this past week, he was 1.7 and his Coumadin was restarted 2.5 on the evening of 11/14/18. He reports the next day 11/15/18, he developed worsening symptoms, coming to the emergency department where he was found to have a hemoglobin of 5.6. His INR on admission was 1.56. He was admitted to the hospitalist service to the telemetry unit. He remained hemodynamically stable. He was transfused a total of 5 units of packed red blood cells and today on discharge, his hemoglobin and hematocrit are 9.2 and 28. He was seen in consultation by autocad technician, Dr. Hanley, who performed an upper gastrointestinal endoscopy and biopsy for CLOtest. The endoscopy was fairly unremarkable showin. "Small hiatal hernia. 2. Minimal antral gastritis. 3. Duodenal deformity." Dr. Hanley reports it is unclear etiology of his upper GI bleed. He recommends holding anticoagulation for at least 1 week, restarting if no signs of further bleeding and recommends strict margins of an INR between 1.7 and 2.3. In regards to Dr. Hanley's report of duodenal deformity, reading from his report, it states "the duodenum - the apex of the bulb was somewhat deformed and narrow. In the duodenal bulb, there were several pieces of celery. They were grasped with biopsy forceps atraumatically and dragged back into the stomach to facilitate full view of the duodenal bulb. No bleeding source was seen. There was no erosion, ulcer, or AVM. Carefully going through the somewhat stricture deformed apex of the bulb, no mucosal defect was seen and no blood. The third and fourth portions of the duodenum were normal. The patient is stable for discharge home. He has been ambulating around the unit with no dizziness, weakness, shortness of breath, or chest pain. I spoke with primary care provider, Dr. Annmarie Ashby, to discuss the patient's hospitalization and discharge plan; as well I left a message for Dr. Santiago, dairy cattle farm manager, who is aware of the patient's hospitalization. DISCHARGE PLAN: 1. Follow up with Dr. Ashby this week with repeat CBC and iron studies. 2. Follow up with Dr. Santiago, previously scheduled appointment. 3. It was discussed with Dr. Ashby that the patient's Coumadin and aspirin can be restarted in 1 week if no signs of bleeding; however, if there is concern due to his cardiac status per GI, Dr. Hanley, defer this to the primary care team. CONDITION ON DISCHARGE: Stable. TIME SPENT: Approximately 60 minutes was spent on this discharge. ADDENDUM: The patient's CLOtest was negative. ROBERT REINA NP [id number]/[facility] #: [id number]/[facility] #: [id number]
--- NOTE | 2018-11-17 21:30 | DS ---
DISCHARGE SUMMARY: ADDENDUM: The patient's CLOtest was negative. ROBERT REINA, ALYSHA [id number]/[facility] #: [id number] [facility]
== END 2018-11-17 17:00 | disposition home or self-care (01) | DRG 378 ==
LOC: ED 14:34 → MEDTELE 17:31
PROVIDERS: ADMIT Internal Medicine; ATTEND Internal Medicine
PROC: 30233N1 Transfusion of Nonautologous Red Blood Cells into Peripheral Vein, Percutaneous Approach (ICD-10-PCS; principal; 2018-11-15)
PROC: 0DB68ZX Excision of Stomach, Via Natural or Artificial Opening Endoscopic, Diagnostic (ICD-10-PCS; 2018-11-16)
DX: K92.1 Melena (principal); D62 Acute posthemorrhagic anemia; Q43.9 Congenital malformation of intestine, unspecified; E11.9 Type 2 diabetes mellitus without complications; I10 Essential (primary) hypertension; I25.10 Atherosclerotic heart disease of native coronary artery without angina pectoris; F32.9 Major depressive disorder, single episode, unspecified; K21.9 Gastro-esophageal reflux disease without esophagitis; R74.8 Abnormal levels of other serum enzymes; I48.91 Unspecified atrial fibrillation; R68.89 Other general symptoms and signs; K44.9 Diaphragmatic hernia without obstruction or gangrene; K29.70 Gastritis, unspecified, without bleeding; K27.9 Peptic ulcer, site unspecified, unspecified as acute or chronic, without hemorrhage or perforation; E66.3 Overweight; R79.1 Abnormal coagulation profile; T45.511A Poisoning by anticoagulants, accidental (unintentional), initial encounter; Y92.009 Unspecified place in unspecified non-institutional (private) residence as the place of occurrence of the external cause; Z95.1 Presence of aortocoronary bypass graft; Z95.3 Presence of xenogenic heart valve; Z85.038 Personal history of other malignant neoplasm of large intestine; Z90.49 Acquired absence of other specified parts of digestive tract; Z82.49 Family history of ischemic heart disease and other diseases of the circulatory system; Z87.891 Personal history of nicotine dependence; Z72.89 Other problems related to lifestyle; Z82.5 Family history of asthma and other chronic lower respiratory diseases; Z86.010 Personal history of colon polyps; Z68.30 Body mass index [BMI] 30.0-30.9, adult; Z79.84 Long term (current) use of oral hypoglycemic drugs
CPT/HCPCS: 36415; 71046; 80048; 80053; 82272; 83605; 83880; 84484; 85014; 85018; 85025; 85610; 85730; 86078; 86850; 86900; 86901; 86922; 87040; 87045; 87046; 87077; 87899; 88305; 93005; 99156; 99157; 99284; A9270-GY; J1200; J2250; J3010; P9040

== ENCOUNTER 2022-03-04 03:53 | Observation (INO) ==
[2022-03-04] MEDS ORDERED: NS 0.9% 1000 ml BAG 1,000 ML IV ONE (04:41)
[2022-03-04] MEDS ORDERED: Droperidol 5 MG/2 ML 2 ML VIAL IV ONE (04:42)
[2022-03-04] MEDS ORDERED: Morphine 10 MG/ML VIAL (1 ml) IV ONE (04:42)
[2022-03-04 04:45] LABS: ABS Basophils 0.1 10^3/ul (0-0.2); ABS Lymphocytes 1.2 10^3/ul (1.0-4.8); ABS Monocytes 0.7 10^3/ul (0-0.8); ABS Neutrophils 8.6 10^3/ul (1.5-7.7); Eosinophil % 0.2 %; Hematocrit 47 % (42-52); Lymphocyte % 11.3 %; Mean Corpuscular HGB Conc 34 g/dL (31-36); Mean Corpuscular Hemoglobin 32 pg (27-31); Mean Corpuscular Volume 92 fL (80-94); Mean Platelet Volume 8.5 fL (7.4-10.4); Nucleated Red Blood Cells % 0.1; Platelet Count 128 10^3/uL (150-450); Red Blood Count 5.09 10^6 /uL (4.18-5.48); Red Cell Distribution Width 13 % (10-15); White Blood Count 10.5 10^3/uL (3.5-10.8)
[2022-03-04 05:08] LABS: Albumin 4.5 g/dL (3.2-5.2); Albumin/Globulin Ratio 1.7 (1-3); Calcium 9.6 mg/dL (8.6-10.3); Globulin 2.7 g/dL (2-4); Total Bilirubin 1.4 mg/dL (0.2-1.0); Total Protein 7.2 g/dL (6.4-8.9)
[2022-03-04 05:12] LABS: INR 0.98 (0.89-1.11)
[2022-03-04 05:37] LABS: Potassium 3.8 mmol/L (3.5-5.0)
[2022-03-04 06:08] LABS: High Sensitivity Troponin 1 Hr 12 pg/mL (<20)
[2022-03-04] MEDS ORDERED: Piperacillin/Tazobac ADVAN 3.375 GM in NS 0.9% 100 ml BAG 100 ML IV ONE (09:15)
[2022-03-04] MEDS ORDERED: Piperacillin/Tazobac 3.375 GM BAG ONE (09:41)
[2022-03-04] MEDS ORDERED: HYDROmorphone 1 MG/1 ML SYRINGE IV SLOW PU PRN (11:09)
[2022-03-04] MEDS ORDERED: Ondansetron 4 mg VIAL 2 MG/ML 2 ml VIAL IV PRN (11:09)
[2022-03-04] MEDS ORDERED: NS 0.9% 1000 ml BAG 1,000 ML IV SCH (11:15)
[2022-03-04] MEDS: HYDROmorphone 0.5 MG/0.5 ML SYRINGE IV SLOW PU PRN ×3 (11:41→15:38)
[2022-03-04] MEDS ORDERED: Piperacillin/Tazobactam VIAL 3.375 GM in NS 0.9% 100 ml BAG 100 ML IVPB SCH (12:00)
[2022-03-04 13:20] LABS: Magnesium 1.2 mg/dL (1.9-2.7)
[2022-03-04] MEDS ORDERED: Famotidine IV 10 MG/ML 2 ml VIAL (20 mg) IV ONE (14:01)
[2022-03-04] MEDS ORDERED: Acetaminophen IV 1 GM/100ML 1,000 MG/100 ML BAG IV ONE ×2 (14:01→14:08)
[2022-03-04] MEDS ORDERED: Magnesium Sulfate IV 1GM/100ML 1 GM/100 ML BAG IV ONE (14:04)
[2022-03-04] MEDS ORDERED: Famotidine IV 10 MG/ML 2 ml VIAL (20 mg) ONE (14:08)
[2022-03-04] MEDS ORDERED: Bupivacaine 0.25% EPI 200,000 30 ML SDV ONE (14:35)
[2022-03-04] MEDS ORDERED: Lactated Ringers 1000 ml BAG 1,000 ML IV SCH (15:00)
[2022-03-04] MEDS ORDERED: Naloxone 0.4 mg VIAL 0.4 mg/ml 1 ml VIAL IV PRN (15:12)
[2022-03-04] MEDS ORDERED: HYDROmorphone 1 MG/1 ML SYRINGE IV PRN (15:12)
[2022-03-04] MEDS ORDERED: fentaNYL 100 mcg/2 ml 50 MCG/ML VIAL IV PRN (15:12)
[2022-03-04] MEDS ORDERED: Prochlorperazine 5 mg/ml 2 ml VIAL (10 mg) IV PRN (15:12)
[2022-03-04] MEDS ORDERED: HYDROmorphone 0.5 MG/0.5 ML SYRINGE ONE (15:13)
[2022-03-04] MEDS ORDERED: Propofol 10 MG/ML 20 ML BTL ONE (15:19)
[2022-03-04] MEDS ORDERED: Succinylcholine 200 mg VIAL 20 mg/ml 10 ml VIAL (200 mg) ONE (15:19)
[2022-03-04] MEDS ORDERED: Lidocaine 2% PF 5 ML VIAL ONE (15:19)
[2022-03-04] MEDS ORDERED: fentaNYL 100 mcg/2 ml 50 MCG/ML VIAL ONE ×4 (15:19→18:57)
[2022-03-04] MEDS ORDERED: Rocuronium 50 mg VIAL 10 mg/ml 5 ml VIAL (50 mg) ONE (16:21)
[2022-03-04] MEDS ORDERED: Sugammadex 500 MG/5 ML 5 ml VIAL IV PUSH ONE (17:26)
[2022-03-04] MEDS ORDERED: Metoprolol Tartrate 5 mg VIAL 5 ml VIAL (1 mg/ml) ONE (17:36)
[2022-03-04] MEDS ORDERED: oxyCODONE/Acetamin 5/325 mg TAB PO PRN (17:40)
[2022-03-04] MEDS ORDERED: hydrALAZINE 20 mg/ml 1 ML Vial IV IV SLOW PU PRN (17:56)
[2022-03-04] MEDS ORDERED: hydrALAZINE 20 mg/ml 1 ML Vial IV ONE (17:58)
[2022-03-04] MEDS ORDERED: Prochlorperazine 5 mg/ml 2 ml VIAL (10 mg) ONE (18:21)
[2022-03-04] MEDS ORDERED: Dextrose 50% Syringe 50 ml 25 GM/50 ML SYRINGE IV PUSH PRN (19:56)
[2022-03-04] MEDS: Piperacillin/Tazobactam VIAL 3.375 GM in NS 0.9% 100 ml BAG 100 ML IVPB SCH ×2 (22:36)
[2022-03-05] MEDS: HYDROmorphone 0.5 MG/0.5 ML SYRINGE IV SLOW PU PRN (04:14)
[2022-03-05] MEDS: Piperacillin/Tazobactam VIAL 3.375 GM in NS 0.9% 100 ml BAG 100 ML IVPB SCH (06:12)
[2022-03-05 08:58] LABS: Albumin 3.2 g/dL (3.2-5.2); Albumin/Globulin Ratio 1.5 (1-3); Calcium 7.9 mg/dL (8.6-10.3); Globulin 2.1 g/dL (2-4); Potassium 4.1 mmol/L (3.5-5.0); Total Bilirubin 1.6 mg/dL (0.2-1.0); Total Protein 5.3 g/dL (6.4-8.9); eGFR CKD-EPI 79.2 (>60)
[2022-03-05 11:12] VITALS: BP 109/72
== END 2022-03-05 12:05 | disposition home or self-care (01) ==
LOC: ED 03:53 → SSU 11:17 → OR 11:17 → SSU 12:35
PROVIDERS: ADMIT Surgery; ATTEND Surgery